=== PATIENT | female | born 1970 | race American Indian/Alaskan Native ===

== ENCOUNTER 2018-12-13 07:50 | Emergency (ER) | payer OTHER ==
[2018-12-13 08:01] VITALS: BP 151/90
[2018-12-13] MEDS ORDERED: ULTRAM PO ONE (09:54)
[2018-12-13] MEDS ORDERED: TORADOL IM ONE (09:54)
--- NOTE | 2018-12-13 10:00 | Emergency Department Report ---
ED Extremity Problem HPI - General Chief complaint: Extremity Injury, Lower Stated complaint: TOE INJURY Time Seen by Provider: 12/13/18 09:34 Source: patient Mode of arrival: Wheelchair Limitations: No Limitations - History of Present Illness Initial comments: 48-year-old female with a past medical history diabetes (cng-[id number]) hypertension, and breast cancer (currently in remission) presents to the hospital with complaint of right great right pinky toe pain 1 week. One week ago patient was walking without any shoes a stroke her fifth toe on edge of a door. She has had pain. A sensitivity since that exacerbated with palpation, movement, and ambulation. Pain also shoots up the leg. Last night patient noted dark discoloration to the toe and therefore came to the hospital for evaluation. Severity scale (0 -10): 8 - Related Data Allergies Allergy/AdvReac Type Severity Reaction Status Date / Time No Known Allergies Allergy Unverified 12/13/18 07:57 ED Review of Systems ROS: Stated complaint: TOE INJURY Other details as noted in HPI Comment: All other systems reviewed and negative ED Past Medical Hx - Past Medical History Previous Medical History?: Yes Hx Hypertension: Yes Hx Diabetes: Yes Additional medical history: Breast CA - Surgical History Past Surgical History?: Yes Additional Surgical History: Left breast surgery - Social History Smoking Status: Current Every Day Smoker Substance Use Type: Alcohol ED Physical Exam - General Limitations: No Limitations - Other Other exam information: General: No limitations, patient is alert in no acute distress Head exam: Atraumatic, normocephalic Eyes exam: Normal appearance ENT: Moist mucous membrane, normal oropharynx Neck exam: Normal inspection, full range of motion Respiratory exam: Clear to auscultation bilateral, no wheezes, rales, crackles Cardiovascular: Normal rate and rhythm Abdomen: Soft, nondistended, and nontender Extremity exam: limited movement of right pinky toe due to pain. Mild swelling and dark discoloration to the lateral fifth toe without erythema without warmth or erythema. Back: Normal Inspection, full range of motion, no tenderness Neurologic: Alert, oriented x3, cranial nerves intact, no motor or sensory deficit Psychiatric: normal affect, normal mood Skin: Warm, dry, intact ED Course Vital Signs 12/13/18 07:59 Temperature 97.5 F L Pulse Rate 88 Respiratory 18 Rate Blood Pressure 151/90 O2 Sat by Pulse 99 Oximetry ED Medical Decision Making - Radiology Data Radiology results: report reviewed EXAM: XR TOE(S) 1V RT HISTORY: pain toe, 5th digit TECHNIQUE: 2 views COMPARISON: None available. FINDINGS: There is an acute or subacute nondisplaced oblique fracture through the proximal metaphyseal diaphyseal junction of the proximal fifth phalanx. There is an old healed fracture of the proximal diaphysis of the fifth metatarsal bone. There is no joint subluxation or dislocation seen. No evidence for inflammatory or degenerative arthritis is seen. No focal bone erosion or sclerosis is seen. No soft tissue emphysema, radiodense soft tissue abnormality or foreign body is seen. IMPRESSION: 1. Acute or subacute nondisplaced oblique fracture through the proximal metaphyseal diaphyseal junction of the proximal fifth phalanx. 2. No joint subluxation or dislocation seen. 3. No soft tissue emphysema, radiodense soft tissue abnormality or foreign body seen. - Medical Decision Making Patient has a fracture identified on x-ray. Sajan taping and cast shoe applied. Crutches provided. Outpatient follow-up with orthopedic recommended here patient states he has tramadol and Wells at home already. - Differential Diagnosis fracture, contusion, sprain, Critical Care Time: No Critical care attestation.: If time is entered above; I have spent that time in minutes in the direct care of this critically ill patient, excluding procedure time. ED Disposition Clinical Impression: Fracture of fifth toe, right, closed Disposition: DC-01 TO HOME OR SELFCARE Is pt being admited?: No Does the pt Need Aspirin: No Condition: Stable Instructions: Toe Fracture (ED) Additional Instructions: Take your current pain medication as prescribed. Follow up with your doctor or the clinic/doctor provided. Return if symptoms worsen as indicated by your discharge instructions Referrals: BERKLEY KEVIN MD [Staff Physician] - 3-5 Days (Orthopedic doctor) RAIN MARTINEZ DPM [Staff Physician] - 3-5 Days (Podiatry) Time of Disposition: 10:34
--- NOTE | 2018-12-13 10:25 | XRay Report ---
EXAM: XR TOE(S) 1V RT HISTORY: pain toe, 5th digit TECHNIQUE: 2 views COMPARISON: None available. FINDINGS: There is an acute or subacute nondisplaced oblique fracture through the proximal metaphyseal diaphyse al junction of the proximal fifth phalanx. There is an old healed fracture of the proximal diaphysis of the fifth metatarsal bone. There is no joint subluxation or dislocation seen. No evidence for inflammatory or degenerative arthr itis is seen. No focal bone erosion or sclerosis is seen. No soft tissue emphysema, radiodense soft tissue abnormality or foreign body is seen. IMPRESSION: 1. Acute or subacute nondisplaced oblique fracture through the proximal metaphyseal diaphyseal junct ion of the proximal fifth phalanx. 2. No joint subluxation or dislocation seen. 3. No soft tissue emphysema, radiodense soft tissue abnormality or foreign body seen. This document is electronically signed by Alvaro Peterson MD., December 13 2018 10:23:16 AM ET
== END 2018-12-13 10:49 | disposition home or self-care (01) ==
LOC: ED 07:50
DX: S92.511A Displaced fracture of proximal phalanx of right lesser toe(s), initial encounter for closed fracture (principal); I10 Essential (primary) hypertension; E11.9 Type 2 diabetes mellitus without complications; F17.200 Nicotine dependence, unspecified, uncomplicated; Z85.3 Personal history of malignant neoplasm of breast; W22.8XXA Striking against or struck by other objects, initial encounter; Y93.89 Activity, other specified; Y92.89 Other specified places as the place of occurrence of the external cause; Y99.8 Other external cause status
CPT/HCPCS: 73660; 96372; 99284; J1885

== ENCOUNTER 2019-12-20 20:20 | Emergency (ER) | payer SELFPAY ==
--- NOTE | 2019-12-20 21:03 | Event Note ---
ED Screening Note Date of service: 12/20/19 Time: 20:59 ED Screening Note: 49 y/o female comes in for cough and backaches and vomiting with low grade fever. Feels weak. Hx/o DM and HTN. Has been out HTN meds for 2 months. This initial assessment/diagnostic orders/clinical plan/treatment(s) is/are subject to change based on patients health status, clinical progression and re- assessment by fellow clinical providers in the ED. Further treatment and workup at subsequent clinical providers discretion. Patient/guardian urged not to elope from the ED as their condition may be serious if not clinically assessed and managed. Initial orders include:
--- NOTE | 2019-12-20 22:02 | XRay Report ---
CHEST 2 VIEWS INDICATION: cough. COMPARISON: None. FINDINGS: Support devices: None. Heart: Within normal limits. Lungs/Pleura: No acute air space or interstitial disease. No significant pleural effusion. IMPRESSION: No acute findings. Signer Name: Harris Jacinto MD Signed: 12/20/2019 9:57 PM Workstation Name: [id number]
[2019-12-21 00:25] VITALS: BP 163/107
--- NOTE | 2019-12-21 00:26 | Emergency Department Report ---
- General Chief Complaint: Upper Respiratory Infection Stated Complaint: BODY ACHES, COUGH Time Seen by Provider: 12/20/19 20:59 Source: patient Mode of arrival: Ambulatory Limitations: No Limitations - History of Present Illness Initial Comments: 49-year-old -Tai[place]ese female patient with history of diabetes and hypertension (noncompliant with medications) presents with complaints nausea/vomiting/diarrhea, cough, congestion, and sinus pressure x4 days. She states the nausea and vomiting have resolved. She also reports a fever of 101 at home yesterday. She denies any hemoptysis, hematemesis/coffee-ground emesis, melena/hematochezia, abdominal pain, or chest pain. Patient states she has been out of her Metformin and lisinopril for the past 2 months and her glucose is running around 180 at home. MD Complaint: fever, cough, rhinorrhea, nasal congestion -: Sudden Associated Symptoms: fever, chills, myalgias, rhinorrhea, nasal congestion, cough - Related Data Previous Rx's Medication Instructions Recorded Last Taken Type Amoxicillin/Potassium Clav 1 each PO BID 7 Days #14 tablet 12/21/19 Unknown Rx [Augmentin 875-125 Tablet] lisinopriL [Zestril TAB] 20 mg PO QDAY 90 Days #90 tablet 12/21/19 Unknown Rx metFORMIN [Glucophage] 500 mg PO BID 90 Days #180 tablet 12/21/19 Unknown Rx Allergies Allergy/AdvReac Type Severity Reaction Status Date / Time antihistamines Allergy Vomiting Uncoded 12/20/19 20:26 ED Review of Systems ROS: Stated complaint: BODY ACHES, COUGH Other details as noted in HPI Constitutional: chills, diaphoresis, fever, malaise, weakness ENT: denies: throat pain Respiratory: cough. denies: shortness of breath Cardiovascular: denies: chest pain Gastrointestinal: nausea, vomiting, diarrhea Genitourinary: denies: dysuria Skin: denies: rash, lesions Neurological: denies: headache ED Past Medical Hx - Past Medical History Previous Medical History?: Yes Hx Hypertension: Yes Hx Diabetes: Yes Hx of Cancer: Yes (Breast CA. No on meds for a while) Hx Arthritis: Yes (rhemoid) Additional medical history: Breast CA - Surgical History Past Surgical History?: Yes Hx Cholecystectomy: Yes Hx Breast Surgery: Yes (left breast) Additional Surgical History: Left breast surgery. partial hyster. - Social History Smoking Status: Current Every Day Smoker Substance Use Type: Alcohol - Medications Home Medications: Home Medications Medication Instructions Recorded Confirmed Last Taken Type Amoxicillin/Potassium Clav 1 each PO BID 7 Days #14 tablet 12/21/19 Unknown Rx [Augmentin 875-125 Tablet] lisinopriL [Zestril TAB] 20 mg PO QDAY 90 Days #90 tablet 12/21/19 Unknown Rx metFORMIN [Glucophage] 500 mg PO BID 90 Days #180 tablet 12/21/19 Unknown Rx ED Physical Exam - General Limitations: No Limitations General appearance: alert, in no apparent distress - Head Head exam: Present: atraumatic, normocephalic - Eye Eye exam: Present: normal appearance. Absent: scleral icterus - ENT ENT exam: Present: normal orophraynx, mucous membranes moist, other (Tenderness noted bilaterally of maxillary sinuses) - Neck Neck exam: Present: normal inspection, full ROM. Absent: tenderness, lymphadenopathy - Respiratory Respiratory exam: Present: normal lung sounds bilaterally. Absent: respiratory distress, chest wall tenderness - Cardiovascular Cardiovascular Exam: Present: regular rate, normal rhythm. Absent: systolic murmur, diastolic murmur, rubs, gallop - GI/Abdominal GI/Abdominal exam: Present: soft, normal bowel sounds. Absent: distended, tenderness, guarding, rebound, rigid - Extremities Exam Extremities exam: Present: normal inspection - Back Exam Back exam: Present: normal inspection - Neurological Exam Neurological exam: Present: alert, oriented X3 - Psychiatric Psychiatric exam: Present: normal affect, normal mood - Skin Skin exam: Present: warm, dry, intact, normal color. Absent: rash, cyanosis, diaphoretic, erythema ED Course Vital Signs 12/20/19 12/21/19 20:29 00:23 Temperature 98.1 F 98.1 F Pulse Rate 95 H 78 Respiratory 18 18 Rate Blood Pressure 198/107 Blood Pressure 163/107 [Right] O2 Sat by Pulse 99 99 Oximetry ED Medical Decision Making - Medical Decision Making 49-year-old -[place] female patient with history of diabetes and hypertension (noncompliant with medications) presents with complaints nausea/vomiting/diarrhea, cough, congestion, and sinus pressure x4 days. Rapid flu was negative. She is afebrile and non-tachycardic. Chest x-ray is normal. Tenderness to palpation noted bilaterally over maxillary sinuses. Given this and that patient is noncompliant diabetic, will treat for bacterial sinusitis. Refills of blood pressure medications also given. Discussed importance of follow-up with primary care provider and strict return precautions in great detail with patient who verbalized understanding. Critical care attestation.: If time is entered above; I have spent that time in minutes in the direct care of this critically ill patient, excluding procedure time. ED Disposition Clinical Impression: Acute bacterial sinusitis, Viral syndrome, Uncontrolled hypertension Disposition: TO HOME OR SELFCARE Is pt being admited?: No Condition: Stable Instructions: Viral Syndrome (ED), Acute Bacterial Rhinosinusitis (ED), Hypertension (ED) Prescriptions: Amoxicillin/Potassium Clav [Augmentin 875-125 Tablet] 1 each PO BID 7 Days #14 tablet metFORMIN [Glucophage] 500 mg PO BID 90 Days #180 tablet lisinopriL [Zestril TAB] 20 mg PO QDAY 90 Days #90 tablet Referrals: YANNICK HERNANDEZ MD [Staff Physician] - 3-5 Days
== END 2019-12-21 01:38 | disposition home or self-care (01) ==
LOC: ED 20:20
DX: J01.80 Other acute sinusitis (principal); B96.89 Other specified bacterial agents as the cause of diseases classified elsewhere; B34.9 Viral infection, unspecified; I10 Essential (primary) hypertension; E11.9 Type 2 diabetes mellitus without complications; F17.200 Nicotine dependence, unspecified, uncomplicated; Z79.899 Other long term (current) drug therapy; Z88.6 Allergy status to analgesic agent
CPT/HCPCS: 71046; 87400

== ENCOUNTER 2020-05-13 06:59 | Emergency (ER) | payer SELFPAY ==
[2020-05-13 07:27] VITALS: BP 179/103
--- NOTE | 2020-05-13 10:13 | Emergency Department Report ---
ED General Adult HPI - General Chief complaint: Upper Respiratory Infection Stated complaint: NOT FEELING WELL PUI?: Yes Time Seen by Provider: 05/13/20 09:50 Source: patient Mode of arrival: Ambulatory Limitations: No Limitations - History of Present Illness Initial comments: 50-year-old morbid obese -Al[place]ian female presents to the emergency room complaining of shortness of breath nausea runny nose tightness to her left calf for the last few days. Patient reports she has a history of hypertension, diabetes, breast cancer and has been out of her meds for the last 4 months. Patient should be taking lisinopril metformin and tamoxifen. Patient states that when she coughs she has back pain. She does report checking her blood sugars and they have been running no higher than 210. Patient denies any history of DVTs. Onset/Timin -: week(s) Location: chest, back, left, lower extremity Quality: aching Consistency: constant Improves with: none Worsens with: movement Associated Symptoms: cough, nausea/vomiting, shortness of breath - Related Data Previous Rx's Medication Instructions Recorded Last Taken Type Amoxicillin/Potassium Clav 1 each PO BID 7 Days #14 tablet 12/21/19 Unknown Rx [Augmentin 875-125 Tablet] lisinopriL [Zestril TAB] 20 mg PO QDAY 90 Days #90 tablet 12/21/19 Unknown Rx metFORMIN [Glucophage] 500 mg PO BID 90 Days #180 tablet 12/21/19 Unknown Rx Allergies Allergy/AdvReac Type Severity Reaction Status Date / Time antihistamines Allergy Vomiting Uncoded 12/20/19 20:26 ED Review of Systems ROS: Stated complaint: NOT FEELING WELL Other details as noted in HPI ED Past Medical Hx - Past Medical History Previous Medical History?: Yes Hx Hypertension: Yes Hx Diabetes: Yes Hx Arthritis: Yes (rhemoid) Additional medical history: Breast CA - Surgical History Past Surgical History?: Yes Hx Cholecystectomy: Yes Hx Breast Surgery: Yes (left breast) Additional Surgical History: Left breast surgery. partial hyster. - Social History Smoking Status: Current Every Day Smoker Substance Use Type: None - Medications Home Medications: Home Medications Medication Instructions Recorded Confirmed Last Taken Type Amoxicillin/Potassium Clav 1 each PO BID 7 Days #14 tablet 12/21/19 Unknown Rx [Augmentin 875-125 Tablet] lisinopriL [Zestril TAB] 20 mg PO QDAY 90 Days #90 tablet 12/21/19 Unknown Rx metFORMIN [Glucophage] 500 mg PO BID 90 Days #180 tablet 12/21/19 Unknown Rx ED Physical Exam - General Limitations: No Limitations ED Course Vital Signs 05/13/20 07:04 Temperature 98.3 F Pulse Rate 77 Respiratory 20 Rate Blood Pressure 179/103 O2 Sat by Pulse 96 Oximetry ED Medical Decision Making - Radiology Data Radiology results: report reviewed Referring Physician:OSCAR ANTHONYPatient Name:CHEKO RODRÍGUEZPatient ID:[id number] of :[id number]:FemaleAccession:[id number] Date:7010-87-86Zlnmad Status:Finalized Findings [address] [address] XRay Report Signed Patient: CHEKO RODRÍGUEZ MR#: [id number] : 1970 Acct:[id number] Age/Sex: 50 / F ADM Date: 05/13/20 Loc: ED Attending Dr: Ordering Physician: DARCIE GEORGES Date of Service: 05/13/20 Procedure(s): XR chest routine 2V Accession Number(s): [id number] cc: DARCIE GEORGES Fluoro Time In Minutes: CHEST PA AND LATERAL VIEWS INDICATION: sob,cough. COMPARISON: 12/20/2019 FINDINGS: Support devices: None Heart: Normal and unchanged Lungs/Pleura: No acute pulmonary or pleural findings. IMPRESSION: 1. No active disease and no interval change. Signer Name: Julio Dougherty MD Signed: 05/13/2020 10:32 AM Workstation Name: [id number] Transcribed By: TM Dictated By: Julio Dougherty MD Electronically Authenticated By: Julio Dougherty MD Signed Date/Time: 05/13/20 1032 DD/ 1032 TD/TT: Referring Physician:OSCAR Ansari TAYLERPatient Name:CHEKO RODRÍGUEZPatient ID:[id number] of :[id number]:FemaleAccession:[id number] Date:5078-74-16Rninon Status:Finalized Findings [address] [place] [address] Cat Scan Report Signed Patient: CHEKO RODRÍGUEZ MR#: [id number] : 1970 Acct:[id number] Age/Sex: 50 / F ADM Date: 05/13/20 Loc: ED Attending Dr: Ordering Physician: DARCIE GEORGES Date of Service: 05/13/20 Procedure(s): CT angio chest Accession Number(s): [id number] cc: DARCIE GEORGES CT angio chest INDICATION: Shortness of breath. TECHNIQUE: All CT scans at this location are performed using CT dose reduction for ALARA by means of automated exposure control. COMPARISON: None available. FINDINGS: Mediastinum, rosmery and axillae are negative. Images through the upper abdomen show some hyperplasia of the left adrenal gland but no significant abnormalities. There appears to be mild, diffuse reticulonodular interstitial lung disease, etiology of which is nonspecific. No pleural effusion. No consolidation. No evidence of pulmonary embolus. IMPRESSION: 1. Very mild, diffuse interstitial lung disease, but no evidence of pulmonary embolus or other acute disease. Signer Name: Julio Dougherty MD - Medical Decision Making 50-year-old morbid obese -Algerian female presents to the emergency room complaining of shortness of breath nausea runny nose tightness to her left calf for the last few days. Patient reports she has a history of hypertension, diabetes, breast cancer and has been out of her meds for the last 4 months. Patient should be taking lisinopril metformin and tamoxifen. Patient states that when she coughs she has back pain. She does report checking her blood sugars and they have been running no higher than 210. Patient denies any history of DVTs. Left Dopplers negative for any DVT, chest x-ray is negative for any acute abnormalities, CTA of chest is negative for any pulmonary embolism. Labs are stable. Recommend to follow-up with a primary care provider. Increase your water intake. Your glucose was 98. Critical care attestation.: If time is entered above; I have spent that time in minutes in the direct care of this critically ill patient, excluding procedure time. ED Disposition Clinical Impression: Left leg pain, Allergic rhinitis, Back pain, Hypertension, Severely overweight Disposition: DC-01 TO HOME OR SELFCARE Is pt being admited?: No Does the pt Need Aspirin: No Condition: Stable Instructions: Hypertension (ED) Additional Instructions: Left Dopplers negative for any DVT, chest x-ray is negative for any acute abnormalities, CTA of chest is negative for any pulmonary embolism. Labs are stable. Recommend to follow-up with a primary care provider. Increase your water intake. Your glucose was 98. Referrals: PRIMARY CARE, [Primary Care Provider] - 3-5 Days [facility] [Outside] - 3-5 Days [facility] [Provider Group] - 3-5 Days
--- NOTE | 2020-05-13 10:37 | XRay Report ---
CHEST PA AND LATERAL VIEWS INDICATION: sob,cough. COMPARISON: 12/20/2019 FINDINGS: Support devices: None Heart: Normal and unchanged Lungs/Pleura: No acute pulmonary or pleural findings. IMPRESSION: 1. No active disease and no interval change. Signer Name: Julio Dougherty MD Signed: 05/13/2020 10:32 AM Workstation Name: [id number]
[2020-05-13 11:55] LABS: Basophils # (Auto) 0.1 K/mm3 (0.0-0.1); Basophils % (Auto) 1.7 % (0.0-1.8); Eosinophils % (Auto) 0.6 % (0.0-4.3); Hematocrit 48.8 % (30.3-42.9); Hemoglobin 16.5 gm/dl (10.1-14.3); Lymphocytes # (Auto) 1.4 K/mm3 (1.2-5.4); Lymphocytes % (Auto) 22.3 % (13.4-35.0); Mean Corpuscular HGB Conc 34 % (30-34); Mean Corpuscular Volume 94 fl (79-97); Monocytes # (Auto) 0.4 K/mm3 (0.0-0.8); Monocytes % (Auto) 5.9 % (0.0-7.3); Platelet Count 117 K/mm3 (140-440); Red Blood Count 5.22 M/mm3 (3.65-5.03); Red Cell Distribution Width 14.4 % (13.2-15.2)
[2020-05-13 12:13] LABS: Alanine Aminotransferase 17 units/L (7-56); Albumin 4.1 g/dL (3.9-5); Blood Urea Nitrogen 7 mg/dL (7-17); Calcium 9.1 mg/dL (8.4-10.2); Hemolysis Index 8
[2020-05-13 12:24] LABS: BUN/Creatinine Ratio 18
--- NOTE | 2020-05-13 13:46 | Vascular Lab Report ---
DUPLEX DOPPLER LOWER EXTREMITY VEINS, LEFT INDICATION / CLINICAL INFORMATION: Left leg swelling and pain. TECHNIQUE: Duplex doppler imaging was performed through the veins of the left lower extremity using venous compr ession and other maneuvers. COMPARISON: None available. FINDINGS: LEFT COMMON FEMORAL VEIN: Negative. LEFT FEMORAL VEIN: Negative. LEFT POPLITEAL VEIN: Negative. LEFT CALF VEINS: Negative. ADDITIONAL FINDINGS: Lower extremity edema. IMPRESSION: 1. No sonographic evidence for DVT in the left lower extremity. Signer Name: Hermelindo Linda MD Signed: 05/13/2020 1:42 PM Workstation Name: [id number]
--- NOTE | 2020-05-13 14:57 | Cat Scan Report ---
CT angio chest INDICATION: Shortness of breath. TECHNIQUE: All CT scans at this location are performed using CT dose reduction for ALARA by means of automated e xposure control. COMPARISON: None available. FINDINGS: Mediastinum, rosmery and axillae are negative. Images through the upper abdomen show some hyperplasia of the left adrenal gland but no significant abnormalities. There appears to be mild, diffuse reticulonodular interstitial lung disease, etiology of which is non specific. No pleural effusion. No consolidation. No evidence of pulmonary embolus. IMPRESSION: 1. Very mild, diffuse interstitial lung disease, but no evidence of pulmonary embolus or other acute disease. Signer Name: Julio Dougherty MD Signed: 05/13/2020 2:53 PM Workstation Name: [id number]
== END 2020-05-13 15:38 | disposition home or self-care (01) ==
LOC: ED 06:59
DX: E66.3 Overweight (principal); M79.605 Pain in left leg; J30.9 Allergic rhinitis, unspecified; M54.9 Dorsalgia, unspecified; I10 Essential (primary) hypertension; E11.9 Type 2 diabetes mellitus without complications; M19.90 Unspecified osteoarthritis, unspecified site; F17.200 Nicotine dependence, unspecified, uncomplicated; Z79.899 Other long term (current) drug therapy; Z88.8 Allergy status to other drugs, medicaments and biological substances; Z98.890 Other specified postprocedural states; Z90.49 Acquired absence of other specified parts of digestive tract; Z68.43 Body mass index [BMI] 50.0-59.9, adult; Z90.710 Acquired absence of both cervix and uterus; Z85.3 Personal history of malignant neoplasm of breast
CPT/HCPCS: 36415; 71046; 71275; 80053; 85025; 93971; 99284; Q9967

== ENCOUNTER 2020-06-03 08:03 | Emergency (ER) | payer SELFPAY ==
[2020-06-03 08:21] VITALS: BP 176/123
--- NOTE | 2020-06-03 09:47 | Emergency Department Report ---
- General Chief complaint: Skin/Abscess/Foreign Body Stated complaint: BLOOD IN URINE Time Seen by Provider: 06/03/20 09:46 Source: patient Mode of arrival: Ambulatory Limitations: No Limitations - History of Present Illness Initial comments: 50-year-old obese female presents to the emergency room reporting that she has a possible abscess in her groin area and has been having blood in her urine for the last 2 days. Patient does admit to urinary frequency and urgency. Patient states that the abscess is in her left inner groin area. Patient states that is been draining pus discharge. Patient denies any fever chills no nausea no vomiting no abdominal pain or chest pain. MD complaint: abscess/boil, other Tetanus Up to Date: yes Severity scale (0 -10): 3 Consistency: intermittent Improves with: none - Related Data Previous Rx's Medication Instructions Recorded Last Taken Type Amoxicillin/Potassium Clav 1 each PO BID 7 Days #14 tablet 12/21/19 Unknown Rx [Augmentin 875-125 Tablet] lisinopriL [Zestril TAB] 20 mg PO QDAY 90 Days #90 tablet 12/21/19 Unknown Rx metFORMIN [Glucophage] 500 mg PO BID 90 Days #180 tablet 12/21/19 Unknown Rx Amoxicillin/K Clav Tab [Augmentin 1 tab PO Q12HR 10 Days #20 tab 06/03/20 Unknown Rx 875 mg] Allergies Allergy/AdvReac Type Severity Reaction Status Date / Time antihistamines Allergy Vomiting Uncoded 06/03/20 08:22 Abscess Boil HPI - HPI Chief Complaint: Skin/Abscess/Foreign Body Stated Complaint: BLOOD IN URINE Time Seen by Provider: 06/03/20 09:46 Home Medications: Previous Rx's Medication Instructions Recorded Last Taken Type Amoxicillin/Potassium Clav 1 each PO BID 7 Days #14 tablet 12/21/19 Unknown Rx [Augmentin 875-125 Tablet] lisinopriL [Zestril TAB] 20 mg PO QDAY 90 Days #90 tablet 12/21/19 Unknown Rx metFORMIN [Glucophage] 500 mg PO BID 90 Days #180 tablet 12/21/19 Unknown Rx Amoxicillin/K Clav Tab [Augmentin 1 tab PO Q12HR 10 Days #20 tab 06/03/20 Unknown Rx 875 mg] Allergies/Adverse Reactions: Allergies Allergy/AdvReac Type Severity Reaction Status Date / Time antihistamines Allergy Vomiting Uncoded 06/03/20 08:22 ED Review of Systems ROS: Stated complaint: BLOOD IN URINE Other details as noted in HPI Comment: All other systems reviewed and negative ED Past Medical Hx - Past Medical History Hx Hypertension: Yes Hx Diabetes: Yes Hx Arthritis: Yes (rhemoid) Additional medical history: Breast CA - Surgical History Hx Cholecystectomy: Yes Hx Breast Surgery: Yes (left breast) Additional Surgical History: Left breast surgery. partial hyster. - Social History Smoking Status: Current Every Day Smoker Substance Use Type: Alcohol - Medications Home Medications: Home Medications Medication Instructions Recorded Confirmed Last Taken Type Amoxicillin/Potassium Clav 1 each PO BID 7 Days #14 tablet 12/21/19 Unknown Rx [Augmentin 875-125 Tablet] lisinopriL [Zestril TAB] 20 mg PO QDAY 90 Days #90 tablet 12/21/19 Unknown Rx metFORMIN [Glucophage] 500 mg PO BID 90 Days #180 tablet 12/21/19 Unknown Rx Amoxicillin/K Clav Tab [Augmentin 1 tab PO Q12HR 10 Days #20 tab 06/03/20 Unknown Rx 875 mg] ED Physical Exam - General Limitations: No Limitations General appearance: alert, in no apparent distress - ENT ENT exam: Present: mucous membranes moist - GI/Abdominal GI/Abdominal exam: Present: soft. Absent: distended, tenderness, guarding - External exam: Present: swelling, lesions - Extremities Exam Extremities exam: Present: normal inspection, full ROM - Back Exam Back exam: Present: normal inspection - Neurological Exam Neurological exam: Present: alert, oriented X3, normal gait - Psychiatric Psychiatric exam: Present: normal affect, normal mood - Expanded Skin Exam Expanded Type of lesion: Present: abscess Distribution of rash: genitals Description of rash: Present: tenderness, erythematous, swelling, indurated. Absent: fluctuant ED Course Vital Signs 06/03/20 08:19 Temperature 98.6 F Pulse Rate 97 H Respiratory 16 Rate Blood Pressure 176/123 [Right] O2 Sat by Pulse 100 Oximetry ED Medical Decision Making - Medical Decision Making 50-year-old obese female presents to the emergency room reporting that she has a possible abscess in her groin area and has been having blood in her urine for the last 2 days. Patient does admit to urinary frequency and urgency. Patient states that the abscess is in her left inner groin area. Patient states that is been draining pus discharge. Patient denies any fever chills no nausea no vomiting no abdominal pain or chest pain. Patient will be placed on Augmentin 875 mg twice a day for 10 days. This should cover her urinary tract infection as well as her abscess. Discussed with patient to put warm compresses on the abscess. Complete antibiotics. Follow-up with the primary care provider. Patient verbalized understanding. Critical care attestation.: If time is entered above; I have spent that time in minutes in the direct care of this critically ill patient, excluding procedure time. ED Disposition Clinical Impression: UTI (urinary tract infection), Abscess of groin, left Disposition: DC- TO HOME OR SELFCARE Is pt being admited?: No Does the pt Need Aspirin: No Condition: Stable Instructions: Urinary Tract Infection in Women (ED), Abscess (ED) Additional Instructions: Complete antibiotics pain medication as needed warm compresses to the abscess sites. Follow-up with her primary care provider. Prescriptions: Amoxicillin/K Clav Tab [Augmentin 875 mg] 1 tab PO Q12HR 10 Days #20 tab Referrals: LUIS FELIPE HARO MD [Primary Care Provider] - 3-5 Days [facility] [Provider Group] - 3-5 Days YANNICK HERNANDEZ MD [Staff Physician] - 3-5 Days Forms: Work/School Release Form(ED)
[2020-06-03 10:33] LABS: Bacteria,Urine 2+ /HPF (Negative); Bilirubin,Urine NEG (Negative); Blood,Urine LG (Negative); Color,Urine Yellow (Yellow); Mucus,Urine FEW /HPF; Urobilinogen,Urine < 2.0 mg/dL (<2.0)
== END 2020-06-03 11:44 | disposition home or self-care (01) ==
LOC: ED 08:03
DX: N39.0 Urinary tract infection, site not specified (principal); L02.214 Cutaneous abscess of groin; I10 Essential (primary) hypertension; E11.9 Type 2 diabetes mellitus without complications; M19.90 Unspecified osteoarthritis, unspecified site; F17.200 Nicotine dependence, unspecified, uncomplicated; Z98.890 Other specified postprocedural states; Z85.3 Personal history of malignant neoplasm of breast; Z79.899 Other long term (current) drug therapy
CPT/HCPCS: 81001; 87086; 99283

== ENCOUNTER 2020-08-25 06:47 | Emergency (ER) | payer SELFPAY ==
[2020-08-25] MEDS ORDERED: MORPHINE 4 MG/1 ML INJ IV ONE (09:37)
[2020-08-25] MEDS ORDERED: SODIUM CHLORIDE IRRI 500 ML 500 ML IR ONE (10:28)
[2020-08-25] MEDS ORDERED: LIDOCAINE 0.5%/EPINEPHRINE 1:200,000 VIAL (50 ML) MDV INFILTRATI ONE (10:30)
[2020-08-25 10:43] VITALS: BP 183/114
--- NOTE | 2020-08-25 10:47 | Emergency Department Report ---
ED General Adult HPI - General Chief complaint: Skin/Abscess/Foreign Body Stated complaint: HEAVY BLEEDING W/PUS/ VAGINAL CYST Time Seen by Provider: 08/25/20 09:30 Source: patient Mode of arrival: Ambulatory Limitations: No Limitations - History of Present Illness Initial comments: Patient is a 50-year-old female who presents with swelling and pain around her vagina she has swelling of the vaginal majora left leg. The pain is severe it is been going on for the last 2 days is a 10 out of 10 moving makes it worse nothing makes it better. Patient states that she has been having large amount of vaginal bleeding and pus Severity scale (0 -10): 0 - Related Data Home Medications Medication Instructions Recorded Confirmed Last Taken Acyclovir 400 mg PO BID 08/25/20 08/25/20 Unknown Gabapentin 300 mg PO BID 08/25/20 08/25/20 Unknown Glimepiride [Amaryl] 4 mg PO QAM 08/25/20 08/25/20 Unknown Meloxicam [Mobic] 15 mg PO DAILY 08/25/20 08/25/20 Unknown Pravastatin Sodium [Pravastatin] 20 mg PO QHS 08/25/20 08/25/20 Unknown Tamoxifen Citrate 20 mg PO DAILY 08/25/20 08/25/20 Unknown Previous Rx's Medication Instructions Recorded Last Taken Type lisinopriL [Zestril TAB] 20 mg PO QDAY 90 Days #90 tablet 12/21/19 Unknown Rx metFORMIN [Glucophage] 500 mg PO BID 90 Days #180 tablet 12/21/19 Unknown Rx Doxycycline Hyclate [Doxycycline 100 mg PO Q12HR #14 tab 08/25/20 Unknown Rx Hyclate TAB] oxyCODONE /ACETAMINOPHEN [Percocet 1 tab PO Q6HR PRN #12 tablet 08/25/20 Unknown Rx 5/325] Allergies Allergy/AdvReac Type Severity Reaction Status Date / Time antihistamines Allergy Vomiting Uncoded 06/03/20 08:22 ED Review of Systems ROS: Stated complaint: HEAVY BLEEDING W/PUS/ VAGINAL CYST Other details as noted in HPI Constitutional: denies: chills, fever Eyes: denies: eye pain, eye discharge, vision change ENT: denies: ear pain, throat pain Respiratory: denies: cough, shortness of breath, wheezing Cardiovascular: denies: chest pain, palpitations Endocrine: no symptoms reported Gastrointestinal: denies: abdominal pain, nausea, diarrhea Genitourinary: denies: urgency, dysuria, discharge Musculoskeletal: denies: back pain, joint swelling, arthralgia Skin: lesions. denies: rash Neurological: denies: headache, weakness, paresthesias Psychiatric: denies: anxiety, depression Hematological/Lymphatic: denies: easy bleeding, easy bruising ED Past Medical Hx - Past Medical History Hx Hypertension: Yes Hx Diabetes: Yes Hx Arthritis: Yes (rhemoid) Additional medical history: Breast CA - Surgical History Hx Cholecystectomy: Yes Hx Breast Surgery: Yes (left breast) Additional Surgical History: Left breast surgery. partial hyster. - Social History Smoking Status: Current Every Day Smoker Substance Use Type: None - Medications Home Medications: Home Medications Medication Instructions Recorded Confirmed Last Taken Type lisinopriL [Zestril TAB] 20 mg PO QDAY 90 Days #90 tablet 12/21/19 08/25/20 Unknown Rx metFORMIN [Glucophage] 500 mg PO BID 90 Days #180 tablet 12/21/19 08/25/20 Unknown Rx Acyclovir 400 mg PO BID 08/25/20 08/25/20 Unknown History Doxycycline Hyclate [Doxycycline 100 mg PO Q12HR #14 tab 08/25/20 Unknown Rx Hyclate TAB] Gabapentin 300 mg PO BID 08/25/20 08/25/20 Unknown History Glimepiride [Amaryl] 4 mg PO QAM 08/25/20 08/25/20 Unknown History Meloxicam [Mobic] 15 mg PO DAILY 08/25/20 08/25/20 Unknown History Pravastatin Sodium [Pravastatin] 20 mg PO QHS 08/25/20 08/25/20 Unknown History Tamoxifen Citrate 20 mg PO DAILY 08/25/20 08/25/20 Unknown History oxyCODONE /ACETAMINOPHEN [Percocet 1 tab PO Q6HR PRN #12 tablet 08/25/20 Unknown Rx 5/325] ED Physical Exam - General Limitations: No Limitations General appearance: alert, in no apparent distress - Head Head exam: Present: atraumatic, normocephalic - Eye Eye exam: Present: normal appearance - ENT ENT exam: Present: mucous membranes moist - Neck Neck exam: Present: normal inspection - Respiratory Respiratory exam: Present: normal lung sounds bilaterally. Absent: respiratory distress - Cardiovascular Cardiovascular Exam: Present: regular rate, normal rhythm. Absent: systolic murmur, diastolic murmur, rubs, gallop - GI/Abdominal GI/Abdominal exam: Present: soft, normal bowel sounds - External exam: Present: erythema, swelling (of left labia majora) - Extremities Exam Extremities exam: Present: normal inspection - Back Exam Back exam: Present: normal inspection - Neurological Exam Neurological exam: Present: alert, oriented X3 - Psychiatric Psychiatric exam: Present: normal affect, normal mood - Skin Skin exam: Present: warm, dry, intact, normal color. Absent: rash ED Course Vital Signs 08/25/20 08/25/20 08/25/20 07:13 09:50 10:43 Temperature 98.1 F Pulse Rate 123 H 106 H 97 H Respiratory 20 18 14 Rate Blood Pressure 171/111 Blood Pressure 157/111 183/114 [Left] O2 Sat by Pulse 97 98 98 Oximetry - I & D Left Vagina Type of Procedure: Complex Blade Size: 11 I & D Procedure: betadine prep Progress: Drained a large amount of blood from patient no drain placed left wound open. ED Medical Decision Making - Medical Decision Making Chief medical diagnosis: Labial majora hematoma Differential medical diagnosis labia majora abscess, Bartholin cyst I will incise and drain I will give patient IV pain medication I will give oral pain medicine and I will send patient home with oral Percocet and doxycycline 11:36 patient is feeling better I will discharge patient home Critical care attestation.: If time is entered above; I have spent that time in minutes in the direct care of this critically ill patient, excluding procedure time. ED Disposition Clinical Impression: Labia enlarged, Hematoma of labia majora Disposition: DC-01 TO HOME OR SELFCARE Is pt being admited?: No Does the pt Need Aspirin: No Condition: Stable Instructions: Incision and Drainage, Care After Prescriptions: Doxycycline Hyclate [Doxycycline Hyclate TAB] 100 mg PO Q12HR #14 tab oxyCODONE /ACETAMINOPHEN [Percocet 5/325] 1 tab PO Q6HR PRN #12 tablet PRN Reason: Pain Referrals: SARAH JEREZ MD [Staff Physician] - 3-5 Days
[2020-08-25] MEDS ORDERED: oxyCODONE /ACETAMINOPHEN 5-325MG TAB PO ONE (11:34)
[2020-08-25] MEDS ORDERED: HYDROmorphone 1 MG/1 ML INJ IV ONE (12:30)
== END 2020-08-25 12:30 | disposition home or self-care (01) ==
LOC: ED 06:47
DX: N90.69 Other specified hypertrophy of vulva (principal); N90.89 Other specified noninflammatory disorders of vulva and perineum; I10 Essential (primary) hypertension; E11.9 Type 2 diabetes mellitus without complications; M19.90 Unspecified osteoarthritis, unspecified site; F17.200 Nicotine dependence, unspecified, uncomplicated; Z79.899 Other long term (current) drug therapy; Z98.890 Other specified postprocedural states; Z88.8 Allergy status to other drugs, medicaments and biological substances
CPT/HCPCS: 96374; 99283; J1170; J2270

== ENCOUNTER 2022-03-28 07:07 | Emergency (ER) | payer SELFPAY ==
[2022-03-28 07:27] VITALS: BP 165/74
--- NOTE | 2022-03-28 08:15 | XRay Report ---
Right knee, 3 views HISTORY: Right knee pain after fall COMPARISON: None FINDINGS: No acute fracture or malalignment. Moderate-severe osteoarthritis of the right knee with os teochondral bodies in the posterior knee and suprapatellar region with moderate joint effusion. No ev idence of lipohemarthrosis. IMPRESSION: 1. No acute fracture. 2. Moderate-severe osteoarthritis with osteochondral bodies and nonspecific moderate joint effusion. Signer Name: Grayson Draper MD Signed: 03/28/2022 8:11 AM Workstation Name: [id number]
[2022-03-28] MEDS ORDERED: IBUPROFEN 600 MG TAB PO ONE (10:40)
[2022-03-28] MEDS ORDERED: predniSONE 20 MG TAB PO ONE (10:40)
[2022-03-28] MEDS ORDERED: oxyCODONE /ACETAMINOPHEN 5-325MG TAB PO ONE (10:40)
[2022-03-28] MEDS ORDERED: ONDANSETRON 4 MG ODT TAB PO ONE (10:40)
--- NOTE | 2022-03-28 11:50 | Vascular Lab Report ---
DUPLEX DOPPLER LOWER EXTREMITY VEINS, RIGHT INDICATION / CLINICAL INFORMATION: right lower extremity pain, swelling. TECHNIQUE: Duplex doppler imaging was performed through the veins of the right lower extremity using venous compression and other maneuvers. COMPARISON: None available. FINDINGS: RIGHT COMMON FEMORAL VEIN: Negative. RIGHT FEMORAL VEIN: Negative. RIGHT POPLITEAL VEIN: Negative. RIGHT CALF VEINS: Negative. ADDITIONAL FINDINGS: Mild edema is seen along the right leg. IMPRESSION: 1. No sonographic evidence for DVT in the right lower extremity. 2. Mild right leg edema. Signer Name: Jaylen Linn MD Signed: 03/28/2022 11:45 AM Workstation Name: [id number]
--- NOTE | 2022-03-28 12:10 | Emergency Department Report ---
ED Lower Extremity HPI - General Chief Complaint: Extremity Injury, Lower Stated Complaint: RIGHT LEG INJURY Source: patient Mode of arrival: Wheelchair Limitations: No Limitations - History of Present Illness MD Complaint: knee injury (right knee pain), leg injury (right leg pain and swelling) -: days(s) (2) Injury: Leg: Right (pain and swelling), Knee: Right (pain and swelling) Type of Injury: eversion, other (TWISTED right knee and leg) Place: street/outdoors Severity: severe Severity scale (0 -10): 8 Improves With: nothing Worsens With: weight bearing, movement, palpation Context: walking Associated Symptoms: snap/pop sensation, swelling, able to partially bear weight. denies: numbness, tingling, unable to bear weight - Related Data Home Medications Medication Instructions Recorded Confirmed Last Taken Acyclovir 400 mg PO BID 08/25/20 08/25/20 Unknown Gabapentin 300 mg PO BID 08/25/20 08/25/20 Unknown Glimepiride [Amaryl] 4 mg PO QAM 08/25/20 08/25/20 Unknown Meloxicam [Mobic] 15 mg PO DAILY 08/25/20 08/25/20 Unknown Pravastatin Sodium [Pravastatin] 20 mg PO QHS 08/25/20 08/25/20 Unknown Tamoxifen Citrate 20 mg PO DAILY 08/25/20 08/25/20 Unknown Previous Rx's Medication Instructions Recorded Last Taken Type lisinopriL [Zestril TAB] 20 mg PO QDAY 90 Days #90 tablet 12/21/19 Unknown Rx metFORMIN [Glucophage] 500 mg PO BID 90 Days #180 tablet 12/21/19 Unknown Rx Doxycycline Hyclate [Doxycycline 100 mg PO Q12HR #14 tab 08/25/20 Unknown Rx Hyclate TAB] oxyCODONE /ACETAMINOPHEN [Percocet 1 tab PO Q6HR PRN #12 tablet 08/25/20 Unknown Rx 5/325] Ibuprofen [Motrin] 800 mg PO Q8HR PRN #30 tablet 03/28/22 Unknown Rx methOCARBAMOL [Robaxin TAB] 750 mg PO Q8H PRN #21 tab 03/28/22 Unknown Rx predniSONE [Deltasone] 60 mg PO QDAY #15 tab 03/28/22 Unknown Rx traMADoL [Ultram] 50 mg PO Q6HR PRN #12 tablet 03/28/22 Unknown Rx Allergies Allergy/AdvReac Type Severity Reaction Status Date / Time antihistamines Allergy Vomiting Uncoded 06/03/20 08:22 ED Review of Systems ROS: Stated complaint: RIGHT LEG INJURY Other details as noted in HPI ED Past Medical Hx - Past Medical History Hx Hypertension: Yes Hx Diabetes: Yes Hx Arthritis: Yes (rhemoid) Additional medical history: Breast CA - Surgical History Hx Cholecystectomy: Yes Hx Breast Surgery: Yes (left breast) Additional Surgical History: Left breast surgery. partial hyster. - Social History Smoking Status: Current Every Day Smoker Substance Use Type: None - Medications Home Medications: Home Medications Medication Instructions Recorded Confirmed Last Taken Type lisinopriL [Zestril TAB] 20 mg PO QDAY 90 Days #90 tablet 12/21/19 08/25/20 Unknown Rx metFORMIN [Glucophage] 500 mg PO BID 90 Days #180 tablet 12/21/19 08/25/20 Unknown Rx Acyclovir 400 mg PO BID 08/25/20 08/25/20 Unknown History Doxycycline Hyclate [Doxycycline 100 mg PO Q12HR #14 tab 08/25/20 Unknown Rx Hyclate TAB] Gabapentin 300 mg PO BID 08/25/20 08/25/20 Unknown History Glimepiride [Amaryl] 4 mg PO QAM 08/25/20 08/25/20 Unknown History Meloxicam [Mobic] 15 mg PO DAILY 08/25/20 08/25/20 Unknown History Pravastatin Sodium [Pravastatin] 20 mg PO QHS 08/25/20 08/25/20 Unknown History Tamoxifen Citrate 20 mg PO DAILY 08/25/20 08/25/20 Unknown History oxyCODONE /ACETAMINOPHEN [Percocet 1 tab PO Q6HR PRN #12 tablet 08/25/20 Unknown Rx 5/325] Ibuprofen [Motrin] 800 mg PO Q8HR PRN #30 tablet 03/28/22 Unknown Rx methOCARBAMOL [Robaxin TAB] 750 mg PO Q8H PRN #21 tab 03/28/22 Unknown Rx predniSONE [Deltasone] 60 mg PO QDAY #15 tab 03/28/22 Unknown Rx traMADoL [Ultram] 50 mg PO Q6HR PRN #12 tablet 03/28/22 Unknown Rx ED Physical Exam - General Limitations: No Limitations ED Course Vital Signs 03/28/22 07:23 Temperature 98.7 F Pulse Rate 76 Respiratory 18 Rate Blood Pressure 165/74 [Left] O2 Sat by Pulse 99 Oximetry Critical care attestation.: If time is entered above; I have spent that time in minutes in the direct care of this critically ill patient, excluding procedure time. ED Disposition Clinical Impression: Chronic osteoarthritis Sprain of right knee/leg Qualifiers: Encounter type: initial encounter Qualified Code(s): S83.91XA - Sprain of unspecified site of right knee, initial encounter Muscle strain of right lower extremity Qualifiers: Encounter type: initial encounter Qualified Code(s): S86.911A - Strain of unspecified muscle(s) and tendon(s) at lower leg level, right leg, initial enco unter Disposition: HOME / SELF CARE / HOMELESS Is pt being admited?: No Does the pt Need Aspirin: No Condition: Stable Instructions: Muscle Strain, [id number], Knee Sprain, Adult, [id number], Arthritis, [id number] Additional Instructions: The right knee x-ray showed no acute fractures or subluxations but chronic degenerative joint disease. Right lower extremity Doppler ultrasound showed no sonographic evidence of DVT. Therefore take medications with food, drink plenty of fluids and follow-up with your primary care physician in 7 to 10 days for reevaluation. Return to the ED immediately if symptoms get worse. Prescriptions: predniSONE [Deltasone] 60 mg PO QDAY #15 tab Ibuprofen [Motrin] 800 mg PO Q8HR PRN #30 tablet PRN Reason: Pain , Severe (7-10) methOCARBAMOL [Robaxin TAB] 750 mg PO Q8H PRN #21 tab PRN Reason: Muscle Spasm traMADoL [Ultram] 50 mg PO Q6HR PRN #12 tablet PRN Reason: Pain Referrals: YANNICK HERNANDEZ MD [Primary Care Provider] - 3-5 Days Forms: Work/School Release Form(ED) Time of Disposition: 12:08 Print Language: SALVADOREAN
== END 2022-03-28 12:48 | disposition home or self-care (01) ==
LOC: ED 07:07
DX: S86.911A Strain of unspecified muscle(s) and tendon(s) at lower leg level, right leg, initial encounter (principal); I10 Essential (primary) hypertension; E11.9 Type 2 diabetes mellitus without complications; M19.90 Unspecified osteoarthritis, unspecified site; Z90.49 Acquired absence of other specified parts of digestive tract; Z98.890 Other specified postprocedural states; F17.200 Nicotine dependence, unspecified, uncomplicated; Z79.899 Other long term (current) drug therapy; W50.2XXA Accidental twist by another person, initial encounter; Y93.89 Activity, other specified; Y92.89 Other specified places as the place of occurrence of the external cause; Y99.8 Other external cause status
CPT/HCPCS: 99284; J3490; Q0162